=== PATIENT | male | born 1990 | race Caucasian/White ===

== ENCOUNTER 2024-03-16 09:17 | Emergency (ER) | payer BC, SELFPAY ==
[2024-03-16 09:18] VITALS: BP 117/78
--- NOTE | 2024-03-16 09:48 | ED.GENMED ---
History of Present Illness
General
Chief Complaint: Skin Surface Trauma
Source: patient
Exam Limitations: none
Time Seen by Provider: 03/16/24 09:22
Nursing documentation reviewed up to this point in time: agreed with
History of Present Illness
History of Present Illness:
34-year-old male presents with a right foot laceration�he says that he opened a box with a knife and left knife on the ground last night and accidentally stepped on a knife. Sustained a small laceration to the right medial foot along the plantar
arch. Unsure of last tetanus�he thinks it may have been around 5 years. No other issues.
Review of Systems
Review of Systems
All Other Systems: ROS reviewed and negative except as documented in HPI and ROS
Skin: Reports other (Foot laceration)
Phy Exam
Physical Exam
Physical Exam:
General: Well appearing and non-toxic
HEENT: protecting airway
Neck: appears supple
CV: No evidence of cyanosis
Resp: No accessory muscle use
Abd: Non-distended
Extremities: No deformities; laceration as below; he has a good strong right DP and PT pulse
Neuro: Alert
Psych: Normal affect
Skin: Patient has small approximately 1 cm linear laceration on the right medial foot along the upper part of the plantar arch relatively superficial somewhat gaping, no foreign body on exploration of the wound; he has a small hematoma underlying
the laceration
Scores
Heart Failure Risk
Heart Failure Risk Score: Not Applicable
Heart Score for Chest Pain Patients
STEMI patient?: Not applicable
Withdrawal Assessment of Alcohol
Withdrawal Assessment Completed?: Not applicable
Course
Orders/Labs/Results
Orders:
Orders
03/16/24 09:48
Tetanus/Diphth/Acelpertussis [Adacel] 0.5 ml IM .ONCE ONE
Vital Signs
Initial and Last Documented VS:
Initial Vital Signs
Temp Pulse Resp BP Pulse Ox
37.1 C 65 18 117/78 99
03/16/24 09:18 03/16/24 09:18 03/16/24 09:18 03/16/24 09:18 03/16/24 09:18
Last Documented Vital Signs
Temp Pulse Resp BP Pulse Ox
37.1 C 65 18 117/78 99
03/16/24 09:18 03/16/24 09:18 03/16/24 09:18 03/16/24 09:18 03/16/24 09:18
Procedures
Laceration Closure
Right Medial Foot:
Status of Wound: clean
Size of Wound in cm: 1
Description of Wound Edges: sharp
Preparation: cleaned with Betadine
Anesthesia: 1% Lidocaine
Revision/Debridement: routine- no revision
Wound exploration: explored to base- no FB
Type of Closure: single layer closure
Skin Closure Material: 4-0 nylon
Number of sutures: 2
MDM/Problems Addressed
Differential Diagnosis Includes:
Foot laceration
MDM/Problems Addressed:
34-year-old male presents with a foot laceration on a knife last night. Exam as above. Vigorously irrigated and cleaned with Betadine sponge, repaired with 2 simple interrupted sutures. Will start on prophylactic antibiotic given location.
Tetanus updated. Spoke about return precautions all questions answered.
*Pulse Oximetry
Patient hypoxic: no
*Critical Care Note
Total Time (30-74mins, 75-104mins- exclusive of procedures): Not Applicable
Data Reviewed
Source: patient
ED Attending Note
-
Portions of this chart may have been created with voice recognition software.� Occasional wrong word or��sound alike� substitutions may have occurred due to the inherent limitations of voice recognition software.
Discharge Plan
Departure
Patient Disposition: Home (Routine Discharge)
Date of Disposition: 03/16/24
Time of Disposition: 09:49
Patient with high blood pressure during this ER visit?: No
Discharge Problem:
Laceration of foot, right
Instructions: Laceration Repair With Stitches (DC)
Prescriptions:
New
cephalexin 500 mg capsule
500 mg PO TID 5 Days Qty: 15 0RF
Referrals:
Sarina Lee MD [Family Provider] - Follow up in 5-7 days
Activity Restrictions/Additional Instructions:
You must have your stitches removed in 1 week. You can either return here to the emergency room, follow-up with your primary doctor, or go to urgent care to have your stitches removed. If you notice any signs of infection please immediately return
to the emergency room to be assessed.
Thank you for visiting the Emergency Department at [facility].
1. Please schedule a follow up appointment as directed. Call first thing tomorrow morning to make an appointment.
2. If indicated, please take your medications as instructed and indicated on discharge paperwork.
3. If any of your symptoms do not improve, or persist, or become more severe within 6-12 hours, please return to the emergency department for further care.
4. Please return to the emergency department if you develop a headache, neck pain/stiffness, fever greater than 100.4F, chest pain, shortness of breath, persistent nausea, vomiting, slurred speech, difficulty walking, numbness/tingling, weakness,
signs of infection or any other symptoms that are worrisome to you.
Please call [phone] if you have any questions.
Interventions
Interventions:
*Risk Screen - Suicide Last Done: 03/16/24 09:18
*General Assessment Last Done: 03/16/24 09:18
*Neglect/Abuse Screening Last Done: 03/16/24 09:18
*ED COVID-19 Vaccine History Last Done: 03/16/24 09:18
Discharge Date and Time
Print Language: MALAGASY
[2024-03-16] MEDS: ADACEL 0.5 ML IM (09:54)
== END 2024-03-16 10:09 | disposition home or self-care (01) ==
LOC: EMR 09:17
PROVIDERS: EMERGENCY PHYSICIAN Emergency Medicine; FAMILY PHYSICIAN Family Medicine
DX: S91.311A Laceration without foreign body, right foot, initial encounter (principal); S90.31XA Contusion of right foot, initial encounter; W26.0XXA Contact with knife, initial encounter; Y93.01 Activity, walking, marching and hiking; Z23 Encounter for immunization
CPT/HCPCS: 99283; 12001; 90471; 90715

== ENCOUNTER 2025-01-07 10:12 | Emergency (ER) | payer BC, SELFPAY ==
[2025-01-07 10:14] VITALS: BP 108/63
--- NOTE | 2025-01-07 12:39 | ED.GENMED ---
History of Present Illness
General
Chief Complaint: Musculo-Skeletal Complaint
Source: patient
Exam Limitations: none
Time Seen by Provider: 01/07/25 11:30
Nursing documentation reviewed up to this point in time: agreed with
History of Present Illness
History of Present Illness:
Patient is a 34-year-old male presenting to the emergency department for evaluation of right shoulder injury. Patient states he was running with his on a trail when he tripped and fell landing on his right shoulder. Patient denies any head
strike or loss of conscious. He reports pain in his right shoulder and limited range of motion. He denies any numbness/tingling in right upper extremity. Patient denies any neck pain, back pain, or other associated injuries.
Patient is not on any blood thinners.
Review of Systems
Review of Systems
Allergies reviewed?: Yes
All Other Systems: ROS reviewed and negative except as documented in HPI and ROS
Phy Exam
Physical Exam
Physical Exam:
Vitals: Patient's vital signs are stable. Afebrile
General: Patient is well appearing, no acute distress
Skin: Warm and dry, no rashes or lesions
Head: Normocephalic, atraumatic
Throat: Protecting airway
Neck: Normal ROM, no cervical spine tenderness
Cardiac: Regular rate
Pulm: No apparent respiratory distress
Abdomen: Nondistended
Extremities: No deformity or edema of right shoulder. No tenderness to clavicle or scapula. Mild abrasion to right shoulder with minimal surrounding tenderness. Full passive range of motion in right shoulder with some limitations in active right
shoulder extension secondary to pain. Full active range of motion in right elbow and right wrist. Sensation intact in RUE. Palpable right radial pulse in RUE.
Neuro: Grossly intact
Psychiatric: Normal affect.
Course
Orders/Labs/Results
Orders:
Orders
01/07/25 10:13
CR Shoulder, Trauma - Right Urgent
Comment:
Reason For Exam: injury, pain
01/07/25 12:11
Sling Right-Treatment ONCE
Vital Signs
Initial and Last Documented VS:
Initial Vital Signs
Temp Pulse Resp BP Pulse Ox
97.8 F 54 16 108/63 100
01/07/25 10:14 01/07/25 10:14 01/07/25 10:14 01/07/25 10:14 01/07/25 10:14
Last Documented Vital Signs
Temp Pulse Resp BP Pulse Ox
97.8 F 54 16 108/63 100
01/07/25 10:14 01/07/25 10:14 01/07/25 10:14 01/07/25 10:14 01/07/25 10:14
MDM/Problems Addressed
Differential Diagnosis Includes:
Not limited to: Proximal humerus fracture, shoulder dislocation, rotator cuff strain/injury, shoulder contusion, etc.
MDM/Problems Addressed:
34 year old with right shoulder injury. No head strike or LOC. No other associated injuries. Vitals and exam as above. No evidence of head or neck trauma. RUE neurovascularly intact without obvious deformity of R shoulder. He has acceptable ROM in
right shoulder. Xray negative for acute fracture or dislocation. Suspect contusion vs muscular strain. Will place shoulder sling. Patient referred to ortho for outpatient f/u. Return precautions discussed. Stable for discharge home.
Chronic conditions affecting care:
N/A
Acute Exacerbation and/or Progression of Chronic Illness:
N/A
*Radiology
Radiology exam reviewed: preliminary read by ED provider (Right shoulder x-ray reviewed by me-no acute fracture or dislocation) and radiology read reviewed
*Pulse Oximetry
Patient hypoxic: no
*EKG
Interpreted by ED Provider?: NA
*Iron Guardrail Installer Interpretation
Rate: Iron Guardrail Installer- N/A
*Critical Care Note
Total Time (30-74mins, 75-104mins- exclusive of procedures): Not Applicable
ED Attending Note
-
Portions of this chart may have been created with voice recognition software.� Occasional wrong word or��sound alike� substitutions may have occurred due to the inherent limitations of voice recognition software.
Discharge Plan
Departure
Patient Disposition: Home (Routine Discharge)
Date of Disposition: 01/07/25
Time of Disposition: 12:08
Patient with high blood pressure during this ER visit?: No
Condition: Good
Covid-19: Not Applicable
Discharge Problem:
Injury of right shoulder
Instructions: Shoulder pain - ED discharge instructions
Prescriptions:
No Action
cephalexin 500 mg capsule
500 mg PO TID 5 Days Qty: 15 0RF
Referrals:
Nicolas Toscano MD [Active] - Next open appointment
Sarina Lee MD [Family Provider] -
Activity Restrictions/Additional Instructions:
RETURN TO THE EMERGENCY DEPARTMENT WITH ANY NUMBNESS/TINGLING IN RIGHT ARM, INTRACTABLE PAIN, WORSENING IN CURRENT SYMPTOMS, OR ANY OTHER CONCERNS
- As discussed�your x-ray showed no evidence of acute fracture or dislocation of your right shoulder.
- You were placed in a shoulder sling today. You should keep this on as symptoms improve the next few weeks. Continue to move your shoulder throughout the day to prevent frozen shoulder. You should apply ice to right shoulder and take
Tylenol/Motrin as needed for pain.
- Follow-up with orthopedics for further evaluation/management as needed. Contact information has been provided for you above.
Monitor your symptoms closely and return to the emergency department with any acute worsening/new symptoms or any other concerns
Interventions
Interventions:
*Risk Screen - Suicide Last Done: 01/07/25 10:14
*General Assessment Last Done: 01/07/25 10:14
*ED COVID-19 Vaccine History Last Done: 01/07/25 10:14
*Nursing Disposition Last Done: 01/07/25 13:09
ED-Musculoskeletal Assessment Last Done: 01/07/25 12:40
Discharge Date and Time
Discharge Date/Time: 01/07/25 13:09
Print Language: SPANISH
== END 2025-01-07 13:09 | disposition home or self-care (01) ==
LOC: EMR 10:12
PROVIDERS: EMERGENCY PHYSICIAN Emergency Medicine; FAMILY PHYSICIAN Family Medicine
DX: S49.91XA Unspecified injury of right shoulder and upper arm, initial encounter (principal); W01.0XXA Fall on same level from slipping, tripping and stumbling without subsequent striking against object, initial encounter; Y93.02 Activity, running
CPT/HCPCS: 99283; 73030